=== PATIENT | male | born 1980 | race Hispanic/Latino ===

== ENCOUNTER 2024-11-30 11:17 | Emergency (ER) | payer SELFPAY ==
[~2024-11-30] VITALS: Ht 172.7 cm; Wt 77.1 kg
[2024-11-30] MEDS ORDERED: KETOROLAC TROMETHAMINE 30 MG/ML SDV IM ONE (12:05)
[2024-11-30] MEDS ORDERED: VALTREX1 GM PO (13:55)
[2024-11-30 13:58] VITALS: BP 125/70
== END 2024-11-30 14:05 | disposition home or self-care (01) | DRG 552 ==
LOC: ED 11:17
DX: S13.9XXA Sprain of joints and ligaments of unspecified parts of neck, initial encounter (principal); S43.401A Unspecified sprain of right shoulder joint, initial encounter; B02.9 Zoster without complications; W14.XXXA Fall from tree, initial encounter; Y99.0 Civilian activity done for income or pay